=== PATIENT | female | born 1980 | race Caucasian/White ===

== ENCOUNTER 2021-03-20 16:23 | Emergency (ER) | payer SELFPAY ==
--- NOTE | 2021-03-20 16:42 | XRR_ITS ---
PROCEDURE INFORMATION: Exam: XR Right Knee Exam date and time: 03/20/2021 4:42 PM Age: 40 years old Clinical indication: Pain; Knee; Right; TECHNIQUE: Imaging protocol: XR Right knee. Views: 1 or 2 views. COMPARISON: No relevant prior studies available. FINDINGS: Bones/joints: Normal. Soft tissues: Normal. XR/XR knee RT 1-2V [id number] IMPRESSION: No acute findings.
[2021-03-20 16:57] VITALS: BP 167/97; PULSE 81; RESP 16; TEMP 36.7; O2SAT 97; BMI 38.2
--- NOTE | 2021-03-20 21:51 | W.ED.EXTPRO ---
HPI - Extremity Problem General: Chief complaint: Extremity Injury, Lower Stated complaint: right knee pain Time Seen by Provider: 03/20/21 21:51 History of Present Illness: HPI Narrative: 40-year-old female comes in today with complaints of right knee pain. 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 Patient states it felt like it popped out and does not know if it went back in or not. Incident occurred today. Patient did have a previous injury about 10 years to the same knee when she had dislocated her knee. Patient has had no other problems since that time though. On exam patient has some anterior swelling to the knee. No obvious deformity was noted. Review of Systems General: Reports: 10 or more systems reviewed and unremarkable except in HPI and below Musc: Reports: other (Right knee injury) Physical Exam Const: COMMON NORMALS: no acute distress and patient oriented x3 GENERAL APPEARANCE: cooperative HENMT: COMMON NORMALS: normocephalic, TM's normal bilaterally and Normal external nose present HEAD & SCALP: normal to inspection and normocephalic NOSE: Normal external nose present TYMPANIC MEMBRANE: TM's normal bilaterally MOUTH: Normal oral and palatal mucosa present THROAT: posterior oropharynx normal Eye: GENERAL EYE: appearance normal, both eyes and all related structures Neck/C-Spine: COMMON NORMALS: full ROM Lymph: LYMPHATIC: no lymphadenopathy noted Chest: COMMONS NORMALS: normal inspection of the chest Resp: COMMON NORMALS: normal respiratory effort EFFORT & INSPECTION: Yes able to speak in complete sentences Cardio: COMMON NORMALS: regular rate and regular rhythm RATE: regular rate RHYTHM: regular rhythm GI: COMMON NORMALS: non-tender : COMMON NORMALS: Yes no CVA tenderness BLADDER/KIDNEY EXAM: Yes no CVA tenderness Back/Pelvis: COMMON NORMALS: no CVA tenderness and thoracic and lumbar spine normal to inspection Extremity: NARRATIVE EXTREMITY EXAM: Mild anterior swelling to the right knee. Inability to flex the knee due to pain. Distal pulses and sensation are intact. No deformity or dislocation is noted. Neuro: COMMON NORMALS: patient oriented x3 and moves all extremities Psych: COMMON NORMALS: mental status grossly normal and cooperative Skin: COMMON NORMALS: no rashes or lesions noted GENERAL SKIN EXAM: no rashes or lesions noted Course Vital Signs: Vital signs: Vital Signs Temperature 98.1 F 03/20/21 16:57 Pulse Rate 81 03/20/21 16:57 Respiratory Rate 16 03/20/21 16:57 Blood Pressure 167/97 03/20/21 16:57 Pulse Oximetry 97 03/20/21 16:57 MDM - Extremity (Nontraumatic) MDM Narrative: Medical decision making narrative: Patient comes in today for injury to the right knee. On exam we note some swelling and tenderness to the anterior aspect of the right knee. Distal pulses and sensations are intact. Patient has pain with movement of the knee. Differential diagnosis includes meniscal injury, ACL injury, patellar dislocation with spontaneous reduction, knee joint dislocation with spontaneous reduction, fracture. X-rays were negative for any abnormality. Suspect patient might have a ACL injury due to her previous dislocation although this may just be secondary to a patellar dislocation with spontaneous reduction. I recommended patient be evaluated by orthopedist in 2 weeks after pain and swelling was improved at this time patient did not want to have the referral due to traveling. Patient will follow up with primary care as needed. Patient was placed on crutches and a knee immobilizer for comfort with warning not to use the knee immobilizer for prolonged time as it may increase risk of muscle wasting and then further weakening the knee. Patient was written a prescription for some hydrocodone review of the record indicated no recent prescriptions of narcotics. Patient reported understanding of care plan and need for follow-up or return as needed. Discharge Plan Discharge Patient Disposition: Home Clinical Impression: Right knee sprain Qualifiers: Encounter type: initial encounter Involved ligament of knee: unspecified ligament Qualified Code(s): S83.91XA - Sprain of unspecified site of right knee, initial encounter Condition: Stable Prescriptions: New hydrocodone-acetaminophen 5-325 mg tablet 1 tab PO Q6H PRN (Reason: pain) Qty: 10 RF: 0 Discharge Orders: Discharge ED (Routine); Ordered 03/20/21 Ordered By: Reyes Laurent Discharge Diet: Usual diet Discharge Activity: Increase activity as tolerated Patient Instructions: ACL Injury (ED), Opioid Safety Activity Restrictions/Additional Instructions: Activity as tolerated. Use ice and heat to help with pain and discomfort. Use crutches until he can bear weight comfortably. Use knee immobilizer sparingly for first 2 to 3 days and then use an elastic bandage for more comfort and support. Use acetaminophen and ibuprofen to help with pain and inflammation. Use hydrocodone for breakthrough pain. Follow-up with primary care for further instructions. Coding Level of Care Code ED Heat Treat Inspector for Jody Brown
[2021-03-20] MEDS: HYDROcodone-acetaminophen 5-325 mg Tablet 1 TAB PO (22:07)
== END 2021-03-20 22:20 | disposition home or self-care (01) ==
PROVIDERS: Emergency Provider Nurse Practitioner Family
DX: S83.91XA Sprain of unspecified site of right knee, initial encounter (principal); X50.1XXA Overexertion from prolonged static or awkward postures, initial encounter
CPT/HCPCS: 29530; 73560; 99283; E0114